=== PATIENT | female | born 1960 | race Caucasian/White ===

== ENCOUNTER 2016-11-19 14:48 | Emergency (ER) | payer BC ==
[~2016-11-19] VITALS: Ht 170.2 cm; Wt 90.5 kg
[~2016-11-19 14:48] MED LIST: COMPAZINE10 MG PO; DECADRON2 MG PO; DIAZEPAM2 MG PO; KYTRIL1 MG PO; LO-DOSE ASPIRIN81 M1 PO; METOCLOPRAMIDE10 MG PO; ONDANSETRON HCL8 MG PO; PERCOCET 5/31 TABLET PO; ROXICODONE5 MG PO; XELODA500 MG PO; ZOFRAN8 MG PO
[2016-11-19 15:50] LABS: HEMATOCRIT 23.7 % (36.0-46.0); MCH 29.5 PG (29.0-34.0); MCHC 33.8 G/DL (30.0-36.0); MCV 87.5 FL (83-99); NRBC (%) 0.3 /100 WBC (0-0); RBC DIS.WIDTH-CV 16.7 % (11.8-14.6); RBC DIS.WIDTH-SD 49.9 % (39-53); RED BLOOD COUNT 2.71 M/uL (3.80-5.20); WHITE BLOOD COUNT 9.2 K/uL (4.1-10.2)
[2016-11-19 15:54] LABS: CHLORIDE 106 mEq/L (99-109); POTASSIUM 3.6 mEq/L (3.7-5.4); SODIUM 141 mEq/L (136-147)
[2016-11-19 15:56] LABS: GLUCOSE 89 mg/dL (70-99)
[2016-11-19 15:57] LABS: ANION GAP 12 MEQ/L (2-14)
[2016-11-19 15:58] LABS: TOTAL BILIRUBIN 0.5 mg/dL (0.0-1.0)
[2016-11-19 15:59] LABS: ALKALINE PHOSPHATASE 132 IU/L (3-129)
[2016-11-19 16:00] LABS: GFR ESTIMATE (CALCULATED) > 59 mL/min/
[2016-11-19 16:01] LABS: UREA NITROGEN (BUN) 10 mg/dL (9-23)
[2016-11-19 16:37] LABS: IMM.PLATELET FRACTION 8.2 (1-7)
[2016-11-19 16:54] LABS: ABS NEUTROPHIL COUNT 6.8; ANISOCYTOSIS 2+; EOSINOPHIL ABS CT 0; INSTRUMENT ABS NEUTROPHIL CT 5.4 K/uL; OVALOCYTES 1+; POIKILOCYTOSIS 1+; TEAR DROP CELLS 1+
[2016-11-19 16:55] LABS: PLATELET COUNT 18 K/uL (156-360)
[2016-11-19 16:56] LABS: PLAT.SUFFICIENCY VERY DECREASED
[2016-11-19 18:00] LABS: ADD MIUA? YES; BILIRUBIN NEGATIVE; BLOOD SMALL; COLOR YELLOW ((YELLOW)); GLUCOSE (STRIP) NEGATIVE; KETONES NEGATIVE; LEUKOCYTES NEGATIVE; NITRITE NEGATIVE; PROTEIN (STRIP) NEGATIVE; SPECIFIC GRAVITY 1.012 (1.000-1.030); UROBILINOGEN 0.2 MG/DL (0.2-1.0)
[2016-11-19 18:05] LABS: BACTERIA NONE SEEN /HPF; EPITHELIAL CELLS RARE /HPF; MUCUS TRACE /LPF; RED BLOOD CELLS 0-5 /HPF (0-5); WHITE BLOOD CELLS 0-5 /HPF (0-5)
[2016-11-19 19:02] VITALS: BP 136/94
== END 2016-11-19 19:10 | disposition home or self-care (01) ==
LOC: EME 14:48
PROVIDERS: Emergency Medicine
DX: R51 Headache (principal); R11.2 Nausea with vomiting, unspecified; R41.0 Disorientation, unspecified; D69.6 Thrombocytopenia, unspecified; D64.9 Anemia, unspecified; C50.919 Malignant neoplasm of unspecified site of unspecified female breast; Z90.10 Acquired absence of unspecified breast and nipple; Z86.010 Personal history of colon polyps
CPT/HCPCS: 70553; 80053; 81003; 85025; 99281; 99285; J7030

== ENCOUNTER → 2016-12-28 | Outpatient (CLI) | payer BC ==
[~2016-12-28] VITALS: Ht 170.2 cm; Wt 89.8 kg
[2016-12-28 09:13] LABS: HEMATOCRIT 38.7 % (36.0-46.0); MCH 31.4 PG (29.0-34.0); MCHC 32.6 G/DL (30.0-36.0); MCV 96.5 FL (83-99); MEAN PLAT.VOLUME 10.4 uM^3 (9.5-12.4); PLATELET COUNT 164 K/uL (156-360); RBC DIS.WIDTH-CV 16.2 % (11.8-14.6); RBC DIS.WIDTH-SD 58.1 % (39-53); RED BLOOD COUNT 4.01 M/uL (3.80-5.20); WHITE BLOOD COUNT 5.7 K/uL (4.1-10.2)
[2016-12-28 09:25] LABS: PROTHROMBIN TIME 11.9 SEC (10.2-12.9)
[2016-12-28 09:28] LABS: PTT 27.4 SEC (25-37)
== END | disposition home or self-care (01) ==
LOC: OPR 08:27 → EDSTATUS 09:00
PROVIDERS: Internal Medicine Hematology & Oncology
DX: C50.919 Malignant neoplasm of unspecified site of unspecified female breast (principal); C78.02 Secondary malignant neoplasm of left lung
CPT/HCPCS: 71010; 77012; 85027; 85610; 85730; 88305; 88341 TC; 88342 TC; J3010

== ENCOUNTER 2017-05-05 18:09 | Emergency (ER) | payer BC ==
[~2017-05-05] VITALS: Ht 170.2 cm; Wt 76.3 kg
[2017-05-05 19:01] LABS: HEMATOCRIT 38.2 % (36.0-46.0); MCH 31.4 PG (29.0-34.0); MCHC 33.2 G/DL (30.0-36.0); MCV 94.3 FL (83-99); PLATELET COUNT 266 K/uL (156-360); RBC DIS.WIDTH-CV 15.8 % (11.8-14.6); RBC DIS.WIDTH-SD 55.3 % (39-53); RED BLOOD COUNT 4.05 M/uL (3.80-5.20); WHITE BLOOD COUNT 5.7 K/uL (4.1-10.2)
[2017-05-05 19:02] LABS: HEMOGLOBIN 12.7 G/DL (11.9-15.5)
[2017-05-05 19:08] LABS: CHLORIDE 102 mEq/L (99-109); POTASSIUM 3.8 mEq/L (3.7-5.4); SODIUM 140 mEq/L (136-147)
[2017-05-05 19:09] LABS: GLUCOSE 109 mg/dL (70-99)
[2017-05-05 19:13] LABS: CREATININE 0.8 mg/dL (0.6-1.3); GFR ESTIMATE (CALCULATED) > 59 mL/min/
[2017-05-05 19:14] LABS: UREA NITROGEN (BUN) 10 mg/dL (9-23)
[2017-05-05 19:22] LABS: TROP-I INTERPRETATION NEGATIVE; TROPONIN-I < 0.01 ng/mL (0.0-0.30)
[2017-05-05] MEDS ORDERED: AZITHROMYCIN250 MG1 PO (22:09)
[2017-05-05] MEDS ORDERED: PREDNISONE50 MG PO (22:10)
[2017-05-05] MEDS ORDERED: ALBUTEROL2.5 MG/3 M IH (22:15)
[2017-05-05 22:28] VITALS: BP 104/67
== END 2017-05-05 22:30 | disposition home or self-care (01) ==
LOC: EME 18:09
DX: J44.9 Chronic obstructive pulmonary disease, unspecified (principal); J40 Bronchitis, not specified as acute or chronic; R04.2 Hemoptysis; C78.00 Secondary malignant neoplasm of unspecified lung; Z85.3 Personal history of malignant neoplasm of breast; Z92.21 Personal history of antineoplastic chemotherapy; Z86.010 Personal history of colon polyps; Z90.10 Acquired absence of unspecified breast and nipple; Z87.891 Personal history of nicotine dependence
CPT/HCPCS: 71046; 71275; 80048; 84484; 85027; 93005; 99281; 99284; J7512

== ENCOUNTER 2017-09-22 15:31 | Inpatient (IN) | payer BC ==
[~2017-09-22] VITALS: Ht 170.2 cm; Wt 65.4 kg
[~2017-09-22 15:31] MED LIST changes: +ALBUTEROL2.5 MG/3 M IH; +AZITHROMYCIN250 MG1 PO; +PREDNISONE50 MG PO
[2017-09-22 17:29] LABS: HEMATOCRIT 24.8 % (36.0-46.0); HEMOGLOBIN 8.1 G/DL (11.9-15.5); MCH 32.1 PG (29.0-34.0); MCHC 32.7 G/DL (30.0-36.0); MCV 98.4 FL (83-99); PLATELET COUNT 170 K/uL (156-360); RBC DIS.WIDTH-CV 23.8 % (11.8-14.6); RBC DIS.WIDTH-SD 83.5 % (39-53); RED BLOOD COUNT 2.52 M/uL (3.80-5.20); WHITE BLOOD COUNT 4.4 K/uL (4.1-10.2)
[2017-09-22 17:31] LABS: BASOPHIL (%) 0.5 % (0-1); EOSINOPHIL (%) 1.1 % (0-5); EOSINOPHIL COUNT 0.1 K/uL (0-0.3); IMMATURE GRANULOCYTE (%) 0.7 % (0.0-0.7); LYMPHOCYTE (%) 8.6 % (15-42); LYMPHOCYTE COUNT 0.4 K/uL (1.0-2.8); MONOCYTE (%) 10.4 % (3-12); MONOCYTE COUNT 0.5 K/uL (0-0.8); NEUTROPHIL (%) 78.7 % (45-76); NEUTROPHIL COUNT 3.5 K/uL (1.8-6.4)
[2017-09-22 17:35] LABS: INTER. NORMALIZED RATIO 1.3
[2017-09-22 17:38] LABS: ALBUMIN 3.4 g/dL (3.2-4.8); CHLORIDE 101 mEq/L (99-109); POTASSIUM 3.3 mEq/L (3.7-5.4); SODIUM 139 mEq/L (136-147)
[2017-09-22 17:40] LABS: GLUCOSE 97 mg/dL (70-99)
[2017-09-22 17:42] LABS: TOTAL BILIRUBIN 0.5 mg/dL (0.0-1.0)
[2017-09-22 17:44] LABS: ALKALINE PHOSPHATASE 140 IU/L (3-129); CREATININE 0.8 mg/dL (0.6-1.3); GFR ESTIMATE (CALCULATED) > 59 mL/min/
[2017-09-22 17:45] LABS: AST (GOT) 18 IU/L (2-34); UREA NITROGEN (BUN) 6 mg/dL (9-23)
[2017-09-22 17:46] LABS: DIRECT BILIRUBIN 0.3 mg/dL (0.0-0.3)
[2017-09-22 17:47] LABS: ALT (GPT) 14 IU/L (3-49)
[2017-09-22 17:49] LABS: TROP-I INTERPRETATION NEGATIVE; TROPONIN-I < 0.01 ng/mL (0.0-0.30)
[2017-09-22 22:50] LABS: APPEARANCE CLEAR ((CLEAR)); BILIRUBIN NEGATIVE; BLOOD NEGATIVE; COLOR STRAW ((YELLOW)); GLUCOSE (STRIP) NEGATIVE; KETONES NEGATIVE; LEUKOCYTES NEGATIVE; NITRITE NEGATIVE; PROTEIN (STRIP) NEGATIVE; SPECIFIC GRAVITY 1.038 (1.000-1.030); UCUL ADDED? NO; UROBILINOGEN 0.2 MG/DL (0.2-1.0)
[2017-09-22] MEDS ORDERED: LEVAQUIN750 MG PO (22:55)
[2017-09-22] MEDS ORDERED: PRILOSEC20 MG PO (22:56)
[2017-09-22] MEDS ORDERED: ZANTAC150 MG PO (22:56)
[2017-09-22] MEDS ORDERED: ZOFRAN ODT8 MG PO (22:56)
[2017-09-22] MEDS ORDERED: DUONEB 2.5-0.5 M3 ML AEROSOL (22:56)
[2017-09-22] MEDS ORDERED: LYNPARZA150 MG PO (23:07)
[2017-09-22 23:29] VITALS: BP 129/69
[2017-09-23 04:05] VITALS: BP 100/67
[2017-09-23 06:24] LABS: BASOPHIL (%) 0.9 % (0-1); EOSINOPHIL (%) 1.2 % (0-5); HEMATOCRIT 25.1 % (36.0-46.0); IMMATURE GRANULOCYTE (%) 0.6 % (0.0-0.7); LYMPHOCYTE (%) 8.4 % (15-42); LYMPHOCYTE COUNT 0.3 K/uL (1.0-2.8); MCH 32.3 PG (29.0-34.0); MCHC 31.9 G/DL (30.0-36.0); MCV 101.2 FL (83-99); MONOCYTE COUNT 0.4 K/uL (0-0.8); NEUTROPHIL (%) 77.9 % (45-76); NEUTROPHIL COUNT 2.7 K/uL (1.8-6.4); PLATELET COUNT 168 K/uL (156-360); RBC DIS.WIDTH-CV 24.1 % (11.8-14.6); RBC DIS.WIDTH-SD 86.6 % (39-53); RED BLOOD COUNT 2.48 M/uL (3.80-5.20); WHITE BLOOD COUNT 3.5 K/uL (4.1-10.2)
[2017-09-23 06:46] LABS: CHLORIDE 101 MEQ/L (99-109); CREATININE 0.8 MG/DL (0.6-1.3); GFR ESTIMATE (CALCULATED) > 59 mL/min/; GLUCOSE 104 mg/dL (70-99); POTASSIUM 3.5 MEQ/L (3.7-5.4); SODIUM 141 MEQ/L (136-147); UREA NITROGEN (BUN) 5 mg/dL (9-23)
[2017-09-23 06:50] VITALS: BP 123/62
[2017-09-23 12:49] LABS: TYPE OF FLUID PLEURAL
[2017-09-23 13:24] LABS: APPEARANCE SLIGHTLY CLOUDY; BODY FLUID RBC'S 2000 /MM^3 (0-100); BODY FLUID WBC'S 642 /MM^3 (0-500)
[2017-09-23 13:33] LABS: BODY FLUID EOSINOPHILS 2 % (0-25); MONONUCLEAR WBC'S 75 %; POLYNUCLEAR WBC'S 23 % (0-25)
[2017-09-23 16:39] VITALS: BP 110/71
[2017-09-23 19:20] VITALS: BP 120/69
[2017-09-23 23:32] VITALS: BP 120/69
[2017-09-24 03:40] VITALS: BP 101/65
[2017-09-24 06:55] VITALS: BP 117/69
[2017-09-24 08:47] LABS: HEMATOCRIT 26.2 % (36.0-46.0); HEMOGLOBIN 8.4 G/DL (11.9-15.5); MCH 32.4 PG (29.0-34.0); MCHC 32.1 G/DL (30.0-36.0); MCV 101.2 FL (83-99); PLATELET COUNT 174 K/uL (156-360); RBC DIS.WIDTH-CV 24.6 % (11.8-14.6); RBC DIS.WIDTH-SD 87.7 % (39-53); RED BLOOD COUNT 2.59 M/uL (3.80-5.20); WHITE BLOOD COUNT 3.7 K/uL (4.1-10.2)
[2017-09-24 09:11] LABS: CHLORIDE 100 MEQ/L (99-109); GFR ESTIMATE (CALCULATED) 45 mL/min/; GLUCOSE 124 mg/dL (70-99); POTASSIUM 3.9 MEQ/L (3.7-5.4); SODIUM 138 MEQ/L (136-147); UREA NITROGEN (BUN) 10 mg/dL (9-23)
[2017-09-24 09:12] LABS: CREATININE 1.3 MG/DL (0.6-1.3)
[2017-09-24 11:45] VITALS: BP 129/76
[2017-09-24 15:58] LABS: BODY FLUID PROTEIN 3.4 G/DL
[2017-09-24 16:15] VITALS: BP 139/76
[2017-09-24 19:03] VITALS: BP 130/78
[2017-09-24 22:59] VITALS: BP 102/59
[2017-09-25 03:49] VITALS: BP 117/65
[2017-09-25 06:39] LABS: HEMATOCRIT 27.4 % (36.0-46.0); HEMOGLOBIN 8.5 G/DL (11.9-15.5); MCV 101.9 FL (83-99)
[2017-09-25 06:50] VITALS: BP 122/64
[2017-09-25 07:01] LABS: VANCOMYCIN, TROUGH 15.5 MCG/ML (10-20)
[2017-09-25] MEDS ORDERED: LEVAQUIN750 MG PO (10:21)
[2017-09-25 10:45] VITALS: BP 113/68
== END 2017-09-25 12:02 | disposition home or self-care (01) | DRG 180 ==
LOC: EME 15:31 → 5EAST 19:43 → EDOF 19:43 → ENRESERV 19:54 → 5EAST 23:23
PROVIDERS: Emergency Medicine; Hospitalist; Internal Medicine Pulmonary Disease; Physician Assistant; Surgery
PROC: 0W993ZZ Drainage of Right Pleural Cavity, Percutaneous Approach (ICD-10-PCS; principal; 2017-09-23)
DX: C78.00 Secondary malignant neoplasm of unspecified lung (principal); J91.0 Malignant pleural effusion; J18.9 Pneumonia, unspecified organism; R09.02 Hypoxemia; C78.1 Secondary malignant neoplasm of mediastinum; C78.7 Secondary malignant neoplasm of liver and intrahepatic bile duct; C79.51 Secondary malignant neoplasm of bone; D63.8 Anemia in other chronic diseases classified elsewhere; J40 Bronchitis, not specified as acute or chronic; E87.6 Hypokalemia; D70.1 Agranulocytosis secondary to cancer chemotherapy; Z85.3 Personal history of malignant neoplasm of breast; Z90.10 Acquired absence of unspecified breast and nipple; Z87.891 Personal history of nicotine dependence; Z86.010 Personal history of colon polyps
CPT/HCPCS: 36415; 71045; 71046; 71275; 76942; 80048; 80053; 80076; 80202; 81003; 82565; 82945; 83605; 83615 91; 83880; 84157; 84484; 85014; 85018; 85025; 85027; 85610; 85730; 87070; 87205; 87449; 87502; 89051; 94640; 94799; 99281; 99285; J1650; J1885; J2405; J2543; J3370; J7050

== ENCOUNTER → 2017-10-05 | Outpatient (CLI) | payer BC ==
[~2017-10-05] MED LIST changes: +DUONEB 2.5-0.5 M3 ML AEROSOL; +LEVAQUIN750 MG PO; +LYNPARZA150 MG PO; +PRILOSEC20 MG PO; +PROAIR RESPICL90 MCG IH; +ZANTAC150 MG PO; +ZOFRAN ODT8 MG PO
== END | disposition home or self-care (01) ==
LOC: RAD 10-03 11:00 → EDSTATUS 11:00
PROC: 0W993ZZ Drainage of Right Pleural Cavity, Percutaneous Approach (ICD-10-PCS; principal; 2017-10-05)
DX: J90 Pleural effusion, not elsewhere classified (principal); C50.919 Malignant neoplasm of unspecified site of unspecified female breast
CPT/HCPCS: 76942; 82945; 83615 91; 84157; 87070; 87205; 88108; 88305; 88341 TC; 88342 TC; 89051